=== PATIENT | male | born 1940 | race Caucasian/White ===

== ENCOUNTER → 2017-10-07 | Outpatient (CLI) | payer OTHER, BC | LOC: RAD 15:38 | DX: M47.894 Other spondylosis, thoracic region (principal); M51.36 Other intervertebral disc degeneration, lumbar region ==

== ENCOUNTER → 2017-11-03 | Outpatient (CLI) | payer OTHER, BC | LOC: MRI 08:48 | DX: M47.896 Other spondylosis, lumbar region (principal); N28.1 Cyst of kidney, acquired ==